=== PATIENT | male | born 1940 | race Caucasian/White ===

== ENCOUNTER 2020-06-20 11:26 | Emergency (ER) | payer OTHER, SELFPAY ==
[2020-06-20 11:36] VITALS: BP 131/59; PULSE 65; RESP 18; TEMP 37.2; O2SAT 100
--- NOTE | 2020-06-20 11:59 | ED.LOWEXIN ---
HPI - Extremity Injury (Lower) General Chief Complaint: Skin/Abscess/Foreign Body Stated Complaint: sore on foot Related Data Home Medications Medication Instructions Recorded Confirmed amitriptyline 25 mg PO DAILY 06/20/20 06/20/20 atorvastatin 80 mg PO DAILY 06/20/20 06/20/20 clopidogrel 75 mg PO DAILY 06/20/20 06/20/20 ezetimibe 10 mg PO DAILY 06/20/20 06/20/20 flash glucose sensor [FreeStyle 06/20/20 06/20/20 Jeovanny 2 Sensor] insulin glargine [Lantus Solostar SUBCUT 06/20/20 U-100 Insulin] insulin lispro [Humalog KwikPen unit SUBCUT 06/20/20 Insulin] losartan 25 mg PO DAILY 06/20/20 06/20/20 spironolactone 25 mg PO DAILY 06/20/20 06/20/20 Allergies Allergy/AdvReac Type Severity Reaction Status Date / Time contrast Allergy Unknown Uncoded 06/20/20 12:02 [facility] Social History Social History Gender identity (if verbalized by the patient): Male Course Vital Signs Vital signs: Vital Signs Temperature 99.0 F 06/20/20 11:36 Pulse Rate 65 06/20/20 11:36 Respiratory Rate 18 06/20/20 11:36 Blood Pressure 131/59 L 06/20/20 11:36 Pulse Oximetry 100 06/20/20 11:36 Temperature 99.0 F 06/20/20 11:36 Pulse Rate 65 06/20/20 11:36 Respiratory Rate 18 06/20/20 11:36 Blood Pressure 131/59 L 06/20/20 11:36 Pulse Oximetry 100 06/20/20 11:36 Discharge Plan Discharge Clinical Impression: Cellulitis Patient Disposition: Left Against Medical Advice Condition: Stable Prescriptions: New cephalexin [Keflex] 500 mg capsule 500 mg PO QID Qty: 30 RF: 0 doxycycline hyclate 100 mg capsule 100 mg PO BID Qty: 10 RF: 0 tramadol 50 mg tablet 50 mg PO Q6H PRN (Reason: pain) Qty: 15 RF: 1 No Action amitriptyline 25 mg tablet 25 mg PO DAILY RF: 0 atorvastatin 80 mg tablet 80 mg PO DAILY RF: 0 ezetimibe 10 mg tablet 10 mg PO DAILY RF: 0 clopidogrel 75 mg tablet 75 mg PO DAILY RF: 0 losartan 25 mg tablet 25 mg PO DAILY RF: 0 insulin lispro [Humalog KwikPen Insulin] 100 unit/mL insulin pen SUBCUT RF: 0 Lantus Solostar U-100 Insulin 100 unit/mL (3 mL) insulin pen SUBCUT RF: 0 (DME) FreeStyle Jeovanny 2 Sensor Kit MISCELLANEOUS RF: 0 spironolactone 25 mg tablet 25 mg PO DAILY RF: 0 Follow-up/Referrals: Tello,Conner lFores MD [Primary Care Provider] -
--- NOTE | 2020-06-20 12:25 | ED.SKABFB ---
HPI - Skin/Abscess/Foreign Bdy General Chief complaint: Skin/Abscess/Foreign Body Stated complaint: sore on foot Source: patient and RN notes reviewed Limitations: no limitations History of Present Illness HPI narrative: The patient, with a prior history of diabetes and cellulitis, presents with right leg discomfort. Patient states and daughter confirms, that he was hospitalized in the last year for cellulitis of the opposite leg requiring digital amputation. He now has over a week long history of left leg redness in a stocking distribution,associated with clear yellowish discharge. Symptoms are moderate, and seem to originate from a stage I blister/ulceration where his great toe rubs. No fever, abscess/induration/, streaking ; he requests refill of prior antibiotics and pain meds Patient repeatedly declines with daughter present referral to hospital, [facility]. Related Data Home Medications Medication Instructions Recorded Confirmed amitriptyline 25 mg PO DAILY 06/20/20 06/20/20 atorvastatin 80 mg PO DAILY 06/20/20 06/20/20 clopidogrel 75 mg PO DAILY 06/20/20 06/20/20 ezetimibe 10 mg PO DAILY 06/20/20 06/20/20 flash glucose sensor [FreeStyle 06/20/20 06/20/20 Jeovanny 2 Sensor] insulin glargine [Lantus Solostar SUBCUT 06/20/20 U-100 Insulin] insulin lispro [Humalog KwikPen unit SUBCUT 06/20/20 Insulin] losartan 25 mg PO DAILY 06/20/20 06/20/20 spironolactone 25 mg PO DAILY 06/20/20 06/20/20 Allergies Allergy/AdvReac Type Severity Reaction Status Date / Time doxycycline AdvReac Blister Verified 06/20/20 12:34 contrast Allergy Unknown Uncoded 06/20/20 12:02 Review of Systems Review of Systems: Narrative: General/Constitutional: No weight loss,fever Eyes: N0: Redness,discharge Ears/Nose/Throat: No: Epistaxis,ear discharge Respiratory: Denies: Hemoptysis Gastrointestinal: No Vomiting, Bleeding-rectal Skin: No Lumps, REPORTS eruption Neurologic: No Focal Weakness,Sz Hematologic: Denies: Petechiae/Purpura Psychiatric: No: Suicida ideationl All Other Systems: Reviewed and Negative PMF Social History Social History Gender identity (if verbalized by the patient): Male Comments At time of signature, agree with nursing past medical, surgical, social and family history. There is no relevant family history pertinent to the presenting complaint Exam Narrative: Exam Narrative: General Appearance: Aged appearing, no distress EYE: PERRLA, EOMI, Conjunctiva clear Ears: External ear normal, Auditory canal normal Nose: Normal nose, Nares clear Mouth/Throat: Normal appearing, Normal lips Neck: Supple Respiratory: Airway patent, No respiratory distress MS-ankle: Normal strength (mostly intact, limited flexion/extension by pain), Tenderness (diffusely, with mild decreased ROM), Swelling (diffusely), Skin: Warm, damp/diffuse scant discharge, with circumferential/stocking glove redness to distal interiano without streaking Neurological: A&O x3, , Normal affect Course Vital Signs Vital signs: Vital Signs Temperature 99.0 F 06/20/20 11:36 Pulse Rate 65 06/20/20 11:36 Respiratory Rate 18 06/20/20 11:36 Blood Pressure 131/59 L 06/20/20 11:36 Pulse Oximetry 100 06/20/20 11:36 Temperature 99.0 F 06/20/20 11:36 Pulse Rate 65 06/20/20 11:36 Respiratory Rate 18 06/20/20 11:36 Blood Pressure 131/59 L 06/20/20 11:36 Pulse Oximetry 100 06/20/20 11:36 Discharge Plan Discharge Clinical Impression: Cellulitis Qualifiers: Site of cellulitis: extremity Site of cellulitis of extremity: lower extremity Laterality: right Qualified Code(s): L03.115 - Cellulitis of right lower limb Patient Disposition: Left Against Medical Advice Condition: Serious Instructions: Cellulitis (ED) Additional Instructions: You declined to go to hospital AMA, you may return anytime. If not see prior physicians and keep photo log of area Prescriptions: New cephalexin [Keflex] 500 mg capsu
== END 2020-06-20 12:34 | disposition left against medical advice (07) ==
PROVIDERS: Emergency Provider Emergency Medicine; PCP Internal Medicine
DX: L03.90 Cellulitis, unspecified (principal); E11.9 Type 2 diabetes mellitus without complications
CPT/HCPCS: 99213; G0463